=== PATIENT | female | born 1990 | race Caucasian/White ===

== ENCOUNTER 2017-04-17 15:38 | Inpatient (IN) | payer BC ==
[~2017-04-17] VITALS: Ht 165.1 cm; Wt 102.6 kg
[2017-04-17] MEDS ORDERED: SODIUM CHLOR 0.9% 1000 ML INJ 1,000 ML IV SCH (16:16)
[2017-04-17 16:17] VITALS: BP 122/76; PULSE 74; RESP 17; TEMP 98; O2SAT 96
--- NOTE | 2017-04-17 16:21 | PD ---
HPI Chief Complaint: Fall Time Seen by Provider: 16:18 Travel History International Travel<30 days: No Contact w/Intl Traveler<30days: No History of Present Illness HPI 26-year-old female brought in by EMS status post trip and fall with injury to the right ankle. She states she slipped off a step and felt a crack and saw deformity of the right ankle. Patient is brought in with cardboard splint in place. Is given morphine in the right without much improvement in her pain. She is able to wiggle her toes and feel me touching with normal capillary refill in place. Pain is 10 over 10. She has no other injuries currently. Patient last ate at approximately 10 AM this morning. Patient is allergic to muscle relaxers but otherwise has no known drug allergies. [facility] Social History Alcohol Use: Yes Tobacco Use: No Substance Use: No Allergies-Medications (Allergen,Severity, Reaction): Coded Allergies: No Known Allergies (Unverified , 04/17/17) Uncoded Allergies: MUSCLE RELAXER (Allergy, Severe, Cramping, 04/17/17) UNKNOWN Reported Meds & Prescriptions Reported Meds & Active Scripts Active Reported Sonata (Zaleplon) 10 Mg Cap 10 Mg PO HS PRN Dexedrine (Dextroamphetamine Sulfate) 10 Mg Cap 10 Mg PO DAILY Prozac (Fluoxetine HCl) 40 Mg Cap 50 Mg PO DAILY Review of Systems Except as stated in HPI: all other systems reviewed are Neg General / Constitutional: No: Fever Eyes: No: Visual changes HENT: No: Headaches Cardiovascular: No: Chest Pain or Discomfort Respiratory: No: Shortness of Breath Gastrointestinal: No: Abdominal Pain Genitourinary: No: Dysuria Musculoskeletal: Positive: Arthralgias, Limited ROM, Pain Skin: No Rash Neurologic: No: Weakness Psychiatric: No: Depression Endocrine: No: Polydipsia Hematologic/Lymphatic: No: Easy Bruising Physical Exam Narrative GENERAL: Patient is in obvious distress. SKIN: Warm and dry. Normal color. Normal turgor. There is ecchymosis over the right ankle with obvious deformity and swelling. No open wounds are noted. HEAD: Atraumatic. Normocephalic. EYES: Pupils equal and round. No scleral icterus. No injection or drainage. ENT: No nasal bleeding or discharge. Mucous membranes pink and moist. NECK: Trachea midline. No JVD. CARDIOVASCULAR: Regular rate and rhythm. RESPIRATORY: No accessory muscle use. Clear to auscultation. Breath sounds equal bilaterally. GASTROINTESTINAL: Abdomen soft, non-tender, nondistended. Hepatic and splenic margins not palpable. MUSCULOSKELETAL: Extremities without clubbing, cyanosis, or edema. No obvious deformities. NEUROLOGICAL: Awake and alert. No obvious cranial nerve deficits. Motor grossly within normal limits. Five out of 5 muscle strength in the arms and legs. Normal speech. PSYCHIATRIC: Appropriate mood and affect; insight and judgment normal. Data Data Last Documented VS Vital Signs Date Time Temp Pulse Resp B/P (MAP) Pulse Ox O2 Delivery O2 Flow Rate FiO2 04/17/17 16:17 98.0 74 17 122/76 (91) 96 Orders Orders Ice/Cold Pack (04/17/17 16:16) Complete Blood Count With Diff (04/17/17 16:16) Comprehensive Metabolic Panel (04/17/17 16:16) Iv Access Insert/Monitor (04/17/17 16:16) Ecg Monitoring (04/17/17 16:16) Oximetry (04/17/17 16:16) NPO (04/17/17 16:16) Ondansetron Inj (Zofran Inj) (04/17/17 16:30) Sodium Chlor 0.9% 1000 Ml Inj (Ns 1000 M (04/17/17 16:16) Sodium Chloride 0.9% Flush (Ns Flush) (04/17/17 16:30) Hydromorphone Pf Inj (Dilaudid Pf Inj) (04/17/17 16:30) Chest, Single Ap (04/17/17 16:16) Ankle, Limited (Ap&Lat) (04/17/17 16:16) Hydromorphone Pf Inj (Dilaudid Pf Inj) (04/17/17 17:15) Lorazepam Inj (Ativan Inj) (04/17/17 17:15) Urinalysis - C+S If Indicated (04/17/17 17:13) Ed Urine Pregnancytest Poc (04/17/17 17:13) Splinting (04/17/17 ) Urine Culture (04/17/17 18:35) Oxycodone-Acetamin 7.5-325 Mg (Percocet (04/17/17 19:15) Labs Laboratory Tests Test 04/17/17 16:45 04/17/17 18:35 White Blood Count 11.0 TH/MM3 Red Blood Count 4.33 MIL/MM3 Hemoglobin 12.9 GM/DL Hematocrit 38.5 % Mean Corpuscular Volume 88.9 FL Mean Corpuscular Hemoglobin 29.7 PG Mean Corpuscular Hemoglobin Concent 33.4 % Red Cell Distribution Width 13.2 % Platelet Count 252 TH/MM3 Mean Platelet Volume 8.5 FL Neutrophils (%) (Auto) 81.3 % Lymphocytes (%) (Auto) 12.7 % Monocytes (%) (Auto) 5.4 % Eosinophils (%) (Auto) 0.4 % Basophils (%) (Auto) 0.2 % Neutrophils # (Auto) 8.9 TH/MM3 Lymphocytes # (Auto) 1.4 TH/MM3 Monocytes # (Auto) 0.6 TH/MM3 Eosinophils # (Auto) 0.0 TH/MM3 Basophils # (Auto) 0.0 TH/MM3 CBC Comment DIFF FINAL Differential Comment Blood Urea Nitrogen 9 MG/DL Creatinine 0.61 MG/DL Random Glucose 98 MG/DL Total Protein 7.2 GM/DL Albumin 3.7 GM/DL Calcium Level 8.4 MG/DL Alkaline Phosphatase 85 U/L Aspartate Amino Transf (AST/SGOT) 20 U/L Alanine Aminotransferase (ALT/SGPT) 18 U/L Total Bilirubin 0.4 MG/DL Sodium Level 140 MEQ/L Potassium Level 3.8 MEQ/L Chloride Level 110 MEQ/L Carbon Dioxide Level 23.4 MEQ/L Anion Gap 7 MEQ/L Estimat Glomerular Filtration Rate 117 ML/MIN Urine Color YELLOW Urine Turbidity HAZY Urine pH 6.5 Urine Specific [place] 1.022 Urine Protein TRACE mg/dL Urine Glucose (UA) NEG mg/dL Urine Ketones 40 mg/dL Urine Occult Blood NEG Urine Nitrite NEG Urine Bilirubin NEG Urine Urobilinogen LESS THAN 2.0 MG/DL Urine Leukocyte Esterase NEG Urine RBC 1 /hpf Urine WBC 3 /hpf Urine Squamous Epithelial Cells 1 /hpf Urine Bacteria MOD /hpf Urine Mucus FEW /lpf Microscopic Urinalysis Comment CULTURE INDICATED MDM Medical Decision Making Medical Screen Exam Complete: Yes Emergency Medical Condition: Yes Differential Diagnosis Fall. Right ankle sprain. Possible fracture. Narrative Course Patient is distress but medically stable. Labs ordered including CBC, CMP, chest x-ray, and x-ray of the right ankle. Patient is made nothing by mouth, IV access is obtained patient is given 1 mg of hydromorphone IV as well as 4 mg Zofran IV. Patient is given 1000 mL was normal saline bolus. Ice pack is applied to the injured site. Labs are unremarkable. Chest x-ray is normal. Patient is given an additional 1 mg of hydromorphone IV as well as 1 mg of lorazepam IV. X-ray of the right ankle shows oblique fracture of the distal fibula and dislocation of the tibia of the ankle mortise with widening of the medial joint space. There is also a fracture of the posterior lip of the tibia. These findings are per the radiologist. Call was placed for [facility] for [facility] splint which is placed. Call was also placed to the orthopedist stone cutter to discuss the patient. Patient was discussed with Dr. Overton the orthopedist stone cutter, who recommended admitting the patient and making him nothing by mouth after midnight for surgery tomorrow. 18:30 hours call was placed to the hospitalist for admission. 1915 hrs. patient was discussed with Dr. Lowery for admission Diagnosis Primary Impression: Closed right ankle fracture Qualified Codes: S82.891A - Other fracture of right lower leg, initial encounter for closed fracture Admitting Information Admitting Physician Requests: Admit Condition: Stable Rl Fraga Apr 17, 2017 16:21
[2017-04-17] MEDS ORDERED: [UNRECOGNIZED DRUG - CODE] PO (16:24)
[2017-04-17] MEDS ORDERED: SONA10CA5 PO (16:24)
[2017-04-17] MEDS ORDERED: PROZ40CA PO (16:24)
[2017-04-17] MEDS ORDERED: ONDANSETRON HCL 4 MG/2 ML VIAL IVP ONE (16:30)
[2017-04-17] MEDS ORDERED: SODIUM CHLORIDE 0.9% FLUSH 10 ML FLUSH IV FLUSH PRN (16:30)
[2017-04-17] MEDS ORDERED: HYDROmorphone HCL PF 1 MG/ML VIAL IVS ONE (16:30)
[2017-04-17 17:00] LABS: AUTOMATED NEUTROPHIL # 8.9 TH/MM3 (1.8-7.7); BASOPHIL % 0.2 % (0.0-2.0); EOSINOPHIL % 0.4 % (0.0-4.0); HEMATOCRIT 38.5 % (35.0-46.0); HEMO FLAGS DIFF FINAL; LYMPH % 12.7 % (9.0-44.0); LYMPHOCYTE # 1.4 TH/MM3 (1.0-4.8); MEAN CELL VOLUME 88.9 FL (80.0-100.0); MEAN CORPUSCULAR HEMOGLOBIN 29.7 PG (27.0-34.0); MEAN CORPUSCULAR HGB CONC 33.4 % (32.0-36.0); MONO % 5.4 % (0.0-8.0); NEUT % 81.3 % (16.0-70.0); PLATELET COUNT 252 TH/MM3 (150-450); RED BLOOD COUNT 4.33 MIL/MM3 (4.00-5.30); RED CELL DISTRIBUTION WIDTH 13.2 % (11.6-17.2)
[2017-04-17] MEDS ORDERED: HYDROmorphone HCL PF 1 MG/ML VIAL IV PUSH ONE (17:15)
[2017-04-17] MEDS ORDERED: LORazepam 2 MG/ML VIAL IV PUSH ONE (17:15)
--- NOTE | 2017-04-17 17:23 | RADRPT ---
EXAM DATE/TIME: 04/17/2017 16:51 [facility] COMPARISON: No previous studies available for comparison. INDICATIONS : Chest pain after fall. MEDICAL HISTORY : None. SURGICAL HISTORY : None. ENCOUNTER: Initial ACUITY: 1 day PAIN SCORE: 10 LOCATION: Bilateral chest FINDINGS: The lungs are under aerated. There is no pneumothorax. Cardiac silhouette is probably normal for th is degree of inspiration. Negative for fracture. CONCLUSION: Under aerated otherwise negative. Rajat Miller MD FACR on April 17, 2017 at 17:21 Board Certified Radiologist. This report was verified electronically.
--- NOTE | 2017-04-17 17:24 | RADRPT ---
EXAM DATE/TIME: 04/17/2017 16:53 [facility] COMPARISON: No previous studies available for comparison. INDICATIONS : Right ankle pain after fall. MEDICAL HISTORY : None. SURGICAL HISTORY : None. ENCOUNTER: Initial ACUITY: 1 day PAIN SCORE: 10/10 LOCATION: Right lateral ankle. FINDINGS: Fracture dislocation at the ankle. There is an oblique fracture of the distal fibula. There is disl ocation of the tibia at the ankle mortise with widening of the medial joint space. The fracture post erior lip of the tibia. CONCLUSION: Fracture with minimal dislocation as described above. Rajat Miller MD FACR on April 17, 2017 at 17:21 Board Certified Radiologist. This report was verified electronically.
[2017-04-17 17:26] LABS: ALT (GPT) 18 U/L (10-53); ANION GAP 7 MEQ/L (5-15); AST (GOT) 20 U/L (15-37); BICARBONATE 23.4 MEQ/L (21.0-32.0); BLOOD UREA NITROGEN 9 MG/DL (7-18); CHLORIDE 110 MEQ/L (98-107); GLOMERULAR FILTRATION RATE 117 ML/MIN (>89); POTASSIUM 3.8 MEQ/L (3.5-5.1); SODIUM (NA) 140 MEQ/L (136-145)
[2017-04-17 17:29] LABS: ALKALINE PHOSPHATASE 85 U/L (45-117); TOTAL BILIRUBIN ADULT 0.4 MG/DL (0.2-1.0)
[2017-04-17 19:01] LABS: BACTERIA, URINE MOD /hpf; BLOOD, URINE NEG (NEG); COMMENT (UR) CULTURE INDICATED; CULTURE IF INDICATED CULTURE INDICATED; GLUCOSE,URINE NEG (NEG); KETONE, URINE 40 mg/dL (NEG); MUCUS URINE FEW /lpf (OCC); NITRITE,URINE NEG (NEG); PH, URINE 6.5 (5.0-8.5); SQUAMOUS EPITHELIAL CELL URINE 1 /hpf (0-5); URINE COLOR YELLOW (YELLW/STRAW)
[2017-04-17] MEDS ORDERED: oxyCODONE/ACETAMINOPHEN 7.5 MG/325 MG TAB PO ONE (19:15)
[2017-04-17] MEDS ORDERED: NALOXONE HCL 0.4 MG/ML AMP IV PUSH PRN (20:45)
[2017-04-17] MEDS ORDERED: ONDANSETRON HCL 4 MG/2 ML VIAL IVP PRN (20:45)
[2017-04-17] MEDS ORDERED: MAGNESIUM HYDROXIDE SUSP 30 ML CUP PO PRN (20:45)
[2017-04-17] MEDS ORDERED: LACTULOSE SYRUP 20 GM/30 ML CUP PO PRN (20:45)
[2017-04-17 21:48] VITALS: BP 129/73; PULSE 71; RESP 18; TEMP 97.8; O2SAT 97
[2017-04-17] MEDS: SODIUM CHLOR 0.9% 1000 ML INJ 1,000 ML IV SCH (22:42)
[2017-04-17] MEDS ORDERED: HYDROmorphone HCL PF 0.5 MG/0.5 ML SYRINGE IV PUSH PRN (22:45)
[2017-04-17] MEDS ORDERED: diphenhydrAMINE HCL 25 MG CAP PO PRN (22:45)
--- NOTE | 2017-04-17 23:16 | HHI.HP ---
[facility] Primary Care Physician Unknown Admission Diagnosis Unstable right ankle fracture Diagnoses: Chief Complaint: right ankle pain Travel History International Travel<30 Days: No Contact w/Intl Traveler <30 Da: No Traveled to Known Affected Are: No History of Present Illness 26 y/o female with a history of ADHD, and depression presented to the ED after tripping off a step and twisting her ankle. She states she was walking down an uneven step and she fell twisting her ankle. She states the pain is a constant 7/10 throbbing pain to her right ankle, worse with movement but is better with Dilaudid. She denies any chest pain, sob, fever or chills. She states she is having some anxiety because of the surgery and is requesting a Xanax to help her sleep. Past Family Social History Past Medical History ADHD Depression Past Surgical History C section [place] teeth Reported Medications Reported Meds & Active Scripts Active Reported Sonata (Zaleplon) 10 Mg Cap 10 Mg PO HS PRN Dexedrine (Dextroamphetamine Sulfate) 10 Mg Cap 10 Mg PO DAILY Prozac (Fluoxetine HCl) 40 Mg Cap 50 Mg PO DAILY Allergies: Coded Allergies: No Known Allergies (Unverified , 04/17/17) Uncoded Allergies: MUSCLE RELAXER (Allergy, Severe, Cramping, 04/17/17) UNKNOWN Active Ordered Medications Current Medications Medications (Trade) Dose Ordered Sig/Zeny Route Start Time Stop Time Status Last Admin (NS Flush) 2 ml UNSCH PRN IV FLUSH 04/17/17 16:30 Sodium Chloride 1,000 ml @ 100 mls/hr Q10H IV 04/17/17 20:41 04/17/17 22:42 (Tylenol) 650 mg Q4H PRN PO 04/17/17 20:45 (Zofran Inj) 4 mg Q6H PRN IVP 04/17/17 20:45 (Narcan Inj) 0.4 mg UNSCH PRN IV PUSH 04/17/17 20:45 (Milk Of Magnesia Liq) 30 ml Q12H PRN PO 04/17/17 20:45 (Lactulose Liq) 30 ml DAILY PRN PO 04/17/17 20:45 (Dilaudid Pf Inj) 0.2 mg Q4H PRN IV PUSH 04/17/17 22:45 (Benadryl) 25 mg HS PRN PO 04/17/17 22:45 Family History Patient denies any family history Social History Patient denies any tobacco, alcohol or illicit drug use. Physical Exam Vital Signs Vital Signs Date Time Temp Pulse Resp B/P (MAP) Pulse Ox O2 Delivery O2 Flow Rate FiO2 04/17/17 21:48 97.8 71 18 129/73 (91) 97 04/17/17 16:17 98.0 74 17 122/76 (91) 96 Physical Exam GENERAL: This is a well-nourished, well-developed patient, in no apparent distress. SKIN: No rashes, ecchymoses or lesions. Cool and dry. Right ankle splinted. HEAD: Atraumatic. Normocephalic. EYES: Pupils equal round and reactive. ENT: Nose without bleeding, purulent drainage or septal hematoma. Airway patent. NECK: Trachea midline. No JVD. CARDIOVASCULAR: Regular rate and rhythm without murmurs, gallops, or rubs. RESPIRATORY: Clear to auscultation. Breath sounds equal bilaterally. No wheezes , rales, or rhonchi. GASTROINTESTINAL: Abdomen soft, non-tender, nondistended. MUSCULOSKELETAL: Right ankle tenderness, good cap refill, able to wiggle toes. No calf tenderness. NEUROLOGICAL: Awake and alert. Motor and sensory grossly within normal limits. Normal speech. Laboratory Laboratory Tests Test 04/17/17 16:45 04/17/17 18:35 White Blood Count 11.0 Red Blood Count 4.33 Hemoglobin 12.9 Hematocrit 38.5 Mean Corpuscular Volume 88.9 Mean Corpuscular Hemoglobin 29.7 Mean Corpuscular Hemoglobin Concent 33.4 Red Cell Distribution Width 13.2 Platelet Count 252 Mean Platelet Volume 8.5 Neutrophils (%) (Auto) 81.3 Lymphocytes (%) (Auto) 12.7 Monocytes (%) (Auto) 5.4 Eosinophils (%) (Auto) 0.4 Basophils (%) (Auto) 0.2 Neutrophils # (Auto) 8.9 Lymphocytes # (Auto) 1.4 Monocytes # (Auto) 0.6 Eosinophils # (Auto) 0.0 Basophils # (Auto) 0.0 CBC Comment DIFF FINAL Differential Comment Blood Urea Nitrogen 9 Creatinine 0.61 Random Glucose 98 Total Protein 7.2 Albumin 3.7 Calcium Level 8.4 Alkaline Phosphatase 85 Aspartate Amino Transf (AST/SGOT) 20 Alanine Aminotransferase (ALT/SGPT) 18 Total Bilirubin 0.4 Sodium Level 140 Potassium Level 3.8 Chloride Level 110 Carbon Dioxide Level 23.4 Anion Gap 7 Estimat Glomerular Filtration Rate 117 Urine Color YELLOW Urine Turbidity HAZY Urine pH 6.5 Urine Specific [place] 1.022 Urine Protein TRACE Urine Glucose (UA) NEG Urine Ketones 40 Urine Occult Blood NEG Urine Nitrite NEG Urine Bilirubin NEG Urine Urobilinogen LESS THAN 2.0 Urine Leukocyte Esterase NEG Urine RBC 1 Urine WBC 3 Urine Squamous Epithelial Cells 1 Urine Bacteria MOD Urine Mucus FEW Microscopic Urinalysis Comment CULTURE INDICATED Date/Time Source Procedure Growth Status 04/17/17 18:35 Urine Clean Catch Urine Culture Pending Received Result Diagram: 04/17/17 1645 04/17/17 1645 Imaging Last Impressions Chest X-Ray 04/17/171615 Signed Impressions: Service Date/Time: Monday, April 17, 2017 16:51 - CONCLUSION: Under aerated otherwise negative. Rajat Miller MD FACR Ankle X-Ray 04/17/171615 Signed Impressions: Service Date/Time: Monday, April 17, 2017 16:53 - CONCLUSION: Fracture with minimal dislocation as described above. Rajat Miller MD FACR Caprini VTE Risk Assessment Caprini VTE Risk Assessment: No/Low Risk (score <= 1) Caprini Risk Assessment Model Point Value = 1 Point Value = 2 Point Value = 3 Point Value = 5 Age 41-60 Minor surgery BMI > 25 kg/m2 Swollen legs Varicose veins or History of unexplained or recurrent spontaneous Oral contraceptives or hormone replacement Sepsis (< 1 month) Serious lung disease, including pneumonia (< 1 month) Abnormal pulmonary function Acute myocardial infarction Congestive heart failure (< 1 month) History of inflammatory bowel disease Medical patient at bed rest Age 61-74 Arthroscopic surgery Major open surgery (> 45 min) Laparoscopic surgery (> 45 min) Malignancy Confined to bed (> 72 hours) Immobilizing plaster cast Central venous access Age >= 75 History of VTE Family history of VTE Factor V Leiden Prothrombin [id number] Lupus anticoagulant Anticardiolipin antibodies Elevated serum homocysteine Heparin-induced thrombocytopenia Other congenital or acquired thrombophilia Stroke (< 1 month) Elective arthroplasty Hip, pelvis, or leg fracture Acute spinal cord injury (< 1 month) Prophylaxis Regimen Total Risk Factor Score Risk Level Prophylaxis Regimen 0-1 Low Early ambulation 2 Moderate Order ONE of the following: *Sequential Compression Device (SCD) *Heparin 5000 units SQ BID 3-4 Higher Order ONE of the following medications: *Heparin 5000 units SQ TID *Enoxaparin/Lovenox 40 mg SQ daily (WT < 150 kg, CrCl > 30 mL/min) *Enoxaparin/Lovenox 30 mg SQ daily (WT < 150 kg, CrCl > 10-29 mL/min) *Enoxaparin/Lovenox 30 mg SQ BID (WT < 150 kg, CrCl > 30 mL/min) AND/OR *Sequential Compression Device (SCD) 5 or more Highest Order ONE of the following medications: *Heparin 5000 units SQ TID (Preferred with Epidurals) *Enoxaparin/Lovenox 40 mg SQ daily (WT < 150 kg, CrCl > 30 mL/min) *Enoxaparin/Lovenox 30 mg SQ daily (WT < 150 kg, CrCl > 10-29 mL/min) *Enoxaparin/Lovenox 30 mg SQ BID (WT < 150 kg, CrCl > 30 mL/min) AND *Sequential Compression Device (SCD) Assessment and Plan Problem List: (1) Closed right ankle fracture ICD Code: S82.891A - Other fracture of right lower leg, initial encounter for closed fracture Status: Acute (2) Depression ICD Code: F32.9 - Major depressive disorder, single episode, unspecified Status: Chronic Assessment and Plan 26 y/o female with a history of ADHD, and depression presented to the ED after tripping off a step and twisting her ankle. Right ankle closed fracture Ankle xray reviewed and shows Oblique fracture at the distal fibula -Consult orthopedic -Pain management with IV Dilaudid and Percocet PO -NPO after midnight, IVF Depression and ADHD, chronic, stable: Resume home medications DVT prophylaxis: SCDs, hold chemical due to surgery Discussed Condition With Patient and RN Physician Certification 2 Midnight Certification Type: Admission for Inpatient Services Order for Inpatient Services The services are ordered in accordance with Medicare regulations or non- Medicare payer requirements, as applicable. In the case of services not specified as inpatient-only, they are appropriately provided as inpatient services in accordance with the 2-midnight benchmark. Estimated LOS (days): 2 days is the estimated time the patient will need to remain in the hospital, assuming treatment plan goals are met and no additional complications. Post-Hospital Plan: Home Problem Qualifiers (1) Closed right ankle fracture: Qualified Codes: S82.891A - Other fracture of right lower leg, initial encounter for closed fracture (2) Depression: Qualified Codes: F32.9 - Major depressive disorder, single episode, unspecified Meredith Lee Apr 17, 2017 23:16
[2017-04-17] MEDS ORDERED: ALPRAZolam 0.25 MG TAB PO ONE (23:30)
[2017-04-17] MEDS: HYDROmorphone HCL PF 1 MG/ML VIAL IV PRN (23:30)
[2017-04-17] MEDS ORDERED: ZALEPLON 10 MG CAP PO PRN (23:30)
[2017-04-18] VITALS (8 sets, daily range): BP systolic 103–130; BP diastolic 60–66; PULSE 64–89; RESP 16–18; TEMP 96.9–98.6; O2SAT 94–98
[2017-04-18] MEDS: ACETAMINOPHEN 325 MG TAB PO PRN ×2 (02:36→07:57)
[2017-04-18] MEDS: HYDROmorphone HCL PF 1 MG/ML VIAL IV PRN (03:39)
[2017-04-18 06:13] LABS: AUTOMATED NEUTROPHIL # 5.6 TH/MM3 (1.8-7.7); BASOPHIL % 0.3 % (0.0-2.0); EOSINOPHIL # 0.1 TH/MM3 (0-0.4); EOSINOPHIL % 1.5 % (0.0-4.0); HEMATOCRIT 36.3 % (35.0-46.0); HEMO FLAGS DIFF FINAL; LYMPH % 22.8 % (9.0-44.0); LYMPHOCYTE # 1.9 TH/MM3 (1.0-4.8); MEAN CELL VOLUME 90.5 FL (80.0-100.0); MEAN CORPUSCULAR HEMOGLOBIN 29.8 PG (27.0-34.0); MEAN CORPUSCULAR HGB CONC 32.9 % (32.0-36.0); MONO % 9.2 % (0.0-8.0); NEUT % 66.2 % (16.0-70.0); PLATELET COUNT 208 TH/MM3 (150-450); RED BLOOD COUNT 4.01 MIL/MM3 (4.00-5.30); RED CELL DISTRIBUTION WIDTH 13.2 % (11.6-17.2); WHITE BLOOD COUNT 8.4 TH/MM3 (4.0-11.0)
[2017-04-18] MEDS: SODIUM CHLOR 0.9% 1000 ML INJ 1,000 ML IV SCH (06:41)
[2017-04-18 06:43] LABS: BICARBONATE 26.2 MEQ/L (21.0-32.0); POTASSIUM 3.6 MEQ/L (3.5-5.1)
[2017-04-18] MEDS ORDERED: HYDROmorphone HCL PF 2 MG/ML VIAL IV PRN (07:45)
[2017-04-18] MEDS: DEXTROAMPHETAMINE SULFATE 5 MG TAB PO SCH (09:00)
[2017-04-18] MEDS: FLUoxetine HCL 10 MG CAP PO SCH (09:22)
[2017-04-18] MEDS ORDERED: ZOLPIDEM TARTRATE 5 MG TAB PO PRN (10:15)
[2017-04-18] MEDS ORDERED: GENTAMICIN SULFATE 80 MG/2 ML VIAL ONE (10:51)
[2017-04-18] MEDS ORDERED: MORPHINE SULFATE 4 MG/ML INJ IV ONE (12:00)
[2017-04-18] MEDS ORDERED: ONDANSETRON HCL 4 MG/2 ML VIAL IV PUSH ONE (12:00)
[2017-04-18] MEDS ORDERED: PROPOFOL 200 MG/20 ML AMP IV ONE (12:00)
[2017-04-18] MEDS ORDERED: LACTATED RINGER'S 1000 ML INJ 1,000 ML IV ONE (12:00)
[2017-04-18] MEDS ORDERED: ceFAZolin 2 GM PREMIX 50 ML ONE (12:43)
[2017-04-18] MEDS ORDERED: MIDAZOLAM HCL 2 MG/2 ML VIAL ONE (12:48)
[2017-04-18] MEDS ORDERED: DEXAMETHASONE SOD PHOS 4 MG/ML VIAL ONE (12:48)
[2017-04-18] MEDS ORDERED: ACETAMINOPHEN 1000 MG/100 ML 100 ML IV ONE (12:48)
[2017-04-18] MEDS ORDERED: FAMOTIDINE 20 MG/2 ML VIAL ONE (12:48)
--- NOTE | 2017-04-18 13:11 | PD.CONS ---
HPI Service Orthopedic Surgeons Consult Requested By Medical staff Reason for Consult Fracture of the right ankle with subluxation Primary Care Physician Unknown Admission Diagnosis Unstable right ankle fracture Diagnoses: (1) Closed right ankle fracture (2) Depression Chief Complaint: Right ankle pain and instability History of Present Illness This patient is a 18-year-old female. She is living in an apartment complex. She indicated that there was an area the stairs it was unstable. She was walking down and as she exited building and she tripped and fell and sustained an injury to her right ankle. She was unable to bear weight. She was brought to [facility] emergency room and evaluated and treated. She is found to have an unstable right ankle fracture subluxation. She was admitted to the medical service. I have been asked see her in consultation regarding the same. Review of Systems Constitutional: DENIES: Diaphoretic episodes, Fatigue, Fever, Weight gain, Weight loss, Chills, Dizziness, Change in appetite, Night Sweats Endocrine: DENIES: Abnorml menstrual pattern, Heat/cold intolerance, Polydipsia , Polyuria, Polyphagia Eyes: DENIES: Blurred vision, Diplopia, Eye inflammation, Eye pain, Vision loss , Photosensitivity, Double Vision Ears, nose, mouth, throat: DENIES: Tinnitus, Hearing loss, Vertigo, Nasal discharge, Oral lesions, Throat pain, Hoarseness, Ear Pain, Running Nose, Epistaxis, Sinus Pain, Toothache, Odynophagia Respiratory: DENIES: Apneas, Cough, Snoring, Wheezing, Hemoptysis, Sputum production, Shortness of breath Cardiovascular: DENIES: Chest pain, Palpitations, Syncope, Dyspnea on Exertion , PND, Lower Extremity Edema, Orthopnea, Claudication Gastrointestinal: DENIES: Abdominal pain, Black stools, Bloody stools, Constipation, Diarrhea, Nausea, Vomiting, Difficulty Swallowing, Anorexia Genitourinary: DENIES: Abnormal vaginal bleeding, Dysmenorrhea, Dyspareunia, Sexual dysfunction, Urinary frequency, Urinary incontinence, Urgency, Hematuria , Dysuria, Nocturia, Vaginal discharge Musculoskeletal: COMPLAINS OF: Joint pain, Joint Swelling Integumentary: DENIES: Abnormal pigmentation, Pruritus, Rash, Nail changes, Breast masses, Breast skin changes, Nipple discharge Hematologic/lymphatic: DENIES: Bruising, Lymphadenopathy Immunologic/allergic: DENIES: Eczema, Urticaria Neurologic: DENIES: Abnormal gait, Headache, Localized weakness, Paresthesias, Seizures, Speech Problems, Tremor, Poor Balance Psychiatric: COMPLAINS OF: Anxiety Past Family Social History Past Medical History ADHD Depression Past Surgical History C section [place] teeth Allergies: Coded Allergies: No Known Allergies (Unverified , 04/17/17) Uncoded Allergies: MUSCLE RELAXER (Allergy, Severe, Cramping, 04/17/17) UNKNOWN Active Ordered Medications Current Medications Medications (Trade) Dose Ordered Sig/Zeny Route Start Time Stop Time Status Last Admin (NS Flush) 2 ml UNSCH PRN IV FLUSH 04/17/17 16:30 Sodium Chloride 1,000 ml @ 100 mls/hr Q10H IV 04/17/17 20:41 04/18/17 06:41 (Tylenol) 650 mg Q4H PRN PO 04/17/17 20:45 04/18/17 07:57 (Zofran Inj) 4 mg Q6H PRN IVP 04/17/17 20:45 (Narcan Inj) 0.4 mg UNSCH PRN IV PUSH 04/17/17 20:45 (Milk Of Magnesia Liq) 30 ml Q12H PRN PO 04/17/17 20:45 (Lactulose Liq) 30 ml DAILY PRN PO 04/17/17 20:45 (Benadryl) 25 mg HS PRN PO 04/17/17 22:45 (Dextrostat) 10 mg DAILY PO 04/18/17 09:00 (PROzac) 50 mg DAILY PO 04/18/17 09:00 04/18/17 09:22 (Dilaudid Pf Inj) 0.02 mg Q1H PRN IV 04/18/17 07:45 04/18/17 10:53 (Ambien) 5 mg HS PRN PO 04/18/17 10:15 Reported Meds & Active Scripts Active Reported Sonata (Zaleplon) 10 Mg Cap 10 Mg PO HS PRN Dexedrine (Dextroamphetamine Sulfate) 10 Mg Cap 10 Mg PO DAILY Prozac (Fluoxetine HCl) 40 Mg Cap 50 Mg PO DAILY Family History Patient denies any family history Social History Patient denies any tobacco, alcohol or illicit drug use. Physical Exam Vital Signs Vital Signs Date Time Temp Pulse Resp B/P (MAP) Pulse Ox O2 Delivery O2 Flow Rate FiO2 04/18/17 11:02 98.0 66 16 110/61 (77) 96 04/18/17 09:21 20 04/18/17 08:02 98.0 89 18 103/66 (78) 98 04/18/17 04:09 16 04/18/17 04:00 97.8 65 18 116/65 (82) 96 04/18/17 00:11 97.2 64 18 118/64 (82) 95 04/17/17 21:48 97.8 71 18 129/73 (91) 97 04/17/17 16:17 98.0 74 17 122/76 (91) 96 Physical Exam The right ankle is in a splint. She has no other localizing areas of discomfort. Sensation distally is normal. She was referred toes. Mild swelling is seen. She has moderate to advanced pain. There is no tenderness about the knee or hip. Both have relatively normal motion. HEENT: Normocephalic atraumatic pupils equal round reactive. NECK: Supple. No abnormal masses. Full range of motion. CHEST: Clear to auscultation with no rales or rhonchi's or wheezes. HEART: Regular rate and rhythm. No murmurs. ABDOMEN: Soft, nontender, no masses. Normal active bowel sounds. GENITOURINARY: Deferred Laboratory Laboratory Tests Test 04/17/17 16:45 04/17/17 18:35 04/18/17 04:36 White Blood Count 11.0 8.4 Red Blood Count 4.33 4.01 Hemoglobin 12.9 12.0 Hematocrit 38.5 36.3 Mean Corpuscular Volume 88.9 90.5 Mean Corpuscular Hemoglobin 29.7 29.8 Mean Corpuscular Hemoglobin Concent 33.4 32.9 Red Cell Distribution Width 13.2 13.2 Platelet Count 252 208 Mean Platelet Volume 8.5 9.4 Neutrophils (%) (Auto) 81.3 66.2 Lymphocytes (%) (Auto) 12.7 22.8 Monocytes (%) (Auto) 5.4 9.2 Eosinophils (%) (Auto) 0.4 1.5 Basophils (%) (Auto) 0.2 0.3 Neutrophils # (Auto) 8.9 5.6 Lymphocytes # (Auto) 1.4 1.9 Monocytes # (Auto) 0.6 0.8 Eosinophils # (Auto) 0.0 0.1 Basophils # (Auto) 0.0 0.0 CBC Comment DIFF FINAL DIFF FINAL Differential Comment Blood Urea Nitrogen 9 10 Creatinine 0.61 0.58 Random Glucose 98 93 Total Protein 7.2 Albumin 3.7 Calcium Level 8.4 8.0 Alkaline Phosphatase 85 Aspartate Amino Transf (AST/SGOT) 20 Alanine Aminotransferase (ALT/SGPT) 18 Total Bilirubin 0.4 Sodium Level 140 141 Potassium Level 3.8 3.6 Chloride Level 110 109 Carbon Dioxide Level 23.4 26.2 Anion Gap 7 6 Estimat Glomerular Filtration Rate 117 124 Urine Color YELLOW Urine Turbidity HAZY Urine pH 6.5 Urine Specific [place] 1.022 Urine Protein TRACE Urine Glucose (UA) NEG Urine Ketones 40 Urine Occult Blood NEG Urine Nitrite NEG Urine Bilirubin NEG Urine Urobilinogen LESS THAN 2.0 Urine Leukocyte Esterase NEG Urine RBC 1 Urine WBC 3 Urine Squamous Epithelial Cells 1 Urine Bacteria MOD Urine Mucus FEW Microscopic Urinalysis Comment CULTURE INDICATED Date/Time Source Procedure Growth Status 04/17/17 18:35 Urine Clean Catch Urine Culture Pending Received Result Diagram: 04/18/17 0436 04/18/17 0436 Imaging X-rays were reviewed and the radiologist's interpretation were reviewed showing evidence of a unstable fracture subluxation with a Mena C fracture of the lateral malleolus and likely disruption of the syndesmosis. There is no bony fracture of the medial malleolus Assessment & Plan Assessment and Plan By malleolar equivalent fracture subluxation of the right ankle. Syndesmotic ligament rupture. Unstable right ankle injury. PLAN: Surgery: Open treatment internal fixation right ankle fracture with lateral plates and screws and likely syndesmotic screws. Consent: There are risks with surgery including infection bleeding loss of motion continued pain and need for further surgery neurologic or vascular injury. The patient understands these issues and wishes to proceed forward with surgery as outlined above. Surgery will be performed today when time is available for surgical treatment. We anticipate approximately 7-8 weeks of [id number] for the affected right leg. Kermit Alston MD Apr 18, 2017 13:11
--- NOTE | 2017-04-18 14:20 | PD.OP ---
cc: Kermit Alston MD Operative Report Date of Surgery: Apr 18, 2017 Preoperative Diagnosis: Bimalleolar equivalent fracture subluxation, right ankle. Postoperative Diagnosis: Trimalleolar equivalent fracture subluxation, right ankle Procedure: Open treatment internal fixation right ankle fracture. Repair of syndesmotic ligament, right ankle Anesthesia: Gen. Surgeon: Kermit Alston Firer Bisque Kiln(s): SARITA Lazaro Operation and Findings: EBL: 50 cc INDICATION: Patient is a 26-year-old female who fell down stairs at the place that she lives. She had an unstable right ankle injury was seen last night. She was admitted through the emergency room. I have been asked to see her in consultation. She is felt be a candidate for open treatment NOTE: Mar Lazaro PA-C was present for the entire surgical procedure as my greenhouse assistant. In my medical opinion her skill and care was necessary for the proper management of this patient. PROCEDURE: The patient brought to the operating room and anesthetized in the supine position. The [] leg was visualized under fluoroscopy. Antibiotics were given within an one hour time window and a timeout was done. The lateral side was approached. After exsanguination the tourniquet was inflated to 250 mmHg. A longitudinal incision was made. The fracture was exposed. Multiple clamps used to hold this in proper position. A proper length ITS plate was positioned and held. Multiple screws were placed as well as a lag screw. Overall alignment was satisfactory. There was evidence of instability of syndesmotic ligament. We were able to hold the ankle in a dorsiflexed position and holding the mortise reduced. At an angle and through the last hole in the plate, a cortical screw was placed through the fibula and then through the lateral cortex of the tibia without compression. Ankle was reduced anatomically. The wound was closed in layers with 2-0 Vicryl 3-0 Vicryl and 3-0 nylon mattress sutures. Intraoperative imaging showed anatomic reduction. Alignment was satisfactory. A posterior splint was fitted and applied. The patient was awakened and taken to recovery room satisfactory condition. The sponge count and needle count and sponge counts were all correct FINDINGS: There was evidence of a try malleolar fragment posteriorly seen on the lateral view. This was a small fragment and did not appear to need additional fixation. The final stability of the ankle was excellent. The alignment was anatomic. No complication was noted Kermit Alston MD Apr 18, 2017 14:20
[2017-04-18] MEDS ORDERED: MAGNESIUM HYDROXIDE SUSP 30 ML CUP PO PRN (14:30)
[2017-04-18] MEDS ORDERED: ACETAMINOPHEN/HYDROcodone 325 MG/7.5 MG TAB PO PRN (14:30)
[2017-04-18] MEDS ORDERED: diphenhydrAMINE HCL 25 MG CAP PO PRN (14:30)
[2017-04-18] MEDS ORDERED: NALOXONE HCL 0.4 MG/ML AMP IV PRN (14:30)
[2017-04-18] MEDS ORDERED: ONDANSETRON HCL 4 MG/2 ML VIAL IVP PRN (14:30)
[2017-04-18] MEDS ORDERED: SODIUM CHLORIDE 0.9% FLUSH 5 ML FLUSH IVF PRN (14:30)
[2017-04-18] MEDS ORDERED: Post-op Orders (for Pharmacy) MISC XX ONE (14:30)
[2017-04-18] MEDS ORDERED: *MEPERIDINE 25 MG INJ VIAL PERIprocedural Use ONLY ONE (14:50)
[2017-04-18] MEDS ORDERED: *morphine SULFATE 8 MG/ML PERIprocedure ONLY ONE ×2 (15:03→15:13)
[2017-04-18] MEDS ORDERED: DO NOT ADM ANY ANTICOAGULANT DRUGS PRN (15:15)
[2017-04-18] MEDS ORDERED: *HYDROmorphone PF 1 MG VIAL PERIprocedural Use ONLY ONE (15:19)
[2017-04-18] MEDS: LACTATED RINGER'S 1000 ML INJ 1,000 ML IV SCH ×2 (15:53→21:04)
--- NOTE | 2017-04-18 15:57 | RADRPT ---
EXAM DATE/TIME: 04/18/2017 14:00 [place] COMPARISON: No previous studies available for comparison. INDICATIONS : ORIF right ankle. MEDICAL HISTORY : None. SURGICAL HISTORY : None. ENCOUNTER: Subsequent ACUITY: 1 day PAIN SCORE: Non-responsive. LOCATION: Right ankle. FINDINGS/CONCLUSION: Four-view right ankle demonstrates the patient has a lateral fixation plate across the fibula with a syndesmotic screw. There is excellent alignment. There is no complication with the hardware. The a nkle mortise is grossly intact. Rachid Flynn MD on April 18, 2017 at 14:44 Board Certified Radiologist. This report was verified electronically.
[2017-04-18] MEDS: CALCIUM/VITAMIN D 250 MG/125 U TAB PO SCH (17:27)
[2017-04-18] MEDS: ACETAMINOPHEN/HYDROcodone 325 MG/7.5 MG TAB PO PRN ×2 (17:27→23:14)
--- NOTE | 2017-04-18 19:13 | HHI.PR ---
Subjective Remarks Patient reports not having good tolerance for Sonata at home, requesting alternative medication to help her sleep at night., Denies any nausea vomiting or any significant coughing issues postop Objective Vital Signs Date Time Temp Pulse Resp B/P (MAP) Pulse Ox O2 Delivery O2 Flow Rate FiO2 04/18/17 18:30 16 04/18/17 17:21 94 21 04/18/17 16:50 97.4 76 18 130/61 (84) 94 04/18/17 16:00 98.2 77 15 123/60 (81) 99 Nasal Cannula 3 04/18/17 15:45 72 16 114/72 (86) 97 Nasal Cannula 3 04/18/17 15:30 70 17 109/64 (79) 97 Nasal Cannula 3 04/18/17 15:15 72 15 120/73 (89) 97 Nasal Cannula 3 04/18/17 15:00 73 15 131/79 (96) 97 Nasal Cannula 3 04/18/17 14:43 97.2 89 15 144/82 (102) 95 Nasal Cannula 3 04/18/17 11:02 98.0 66 16 110/61 (77) 96 04/18/17 09:21 20 04/18/17 08:02 98.0 89 18 103/66 (78) 98 04/18/17 04:09 16 04/18/17 04:00 97.8 65 18 116/65 (82) 96 04/18/17 00:11 97.2 64 18 118/64 (82) 95 04/17/17 21:48 97.8 71 18 129/73 (91) 97 I/O 04/17/17 04/17/17 04/17/17 04/18/17 04/18/17 04/18/17 07:00 15:00 23:00 07:00 15:00 23:00 Intake Total 1720 ml 700 ml Output Total 5 ml Balance 1720 ml 695 ml Intake Oral 720 ml IV Total 1000 ml Other 700 ml Output Estimated Blood Loss 5 ml # Voids 1 Result Diagram: 04/18/17 0436 04/18/17435 Objective Remarks No acute distress, ambulating with walker well. Right leg in postop dressing, good motion of proximal BL LEs A/P Assessment and Plan 26 y/o female with a history of ADHD, and depression presented to the ED after tripping off a step and twisting her ankle. Right ankle closed fracture Ankle xray reviewed and shows Oblique fracture at the distal fibula -post ortho procedure -Pain management Depression and ADHD, chronic, stable: home medications insomnia 2/2 pain meds - can try xanax prn if ambien doesn't work DVT prophylaxis: SCDs, hold chemical due to surgery Jay Lewis MD Apr 18, 2017 19:13
[2017-04-18] MEDS ORDERED: ALPRAZolam 0.25 MG TAB PO PRN (19:15)
[2017-04-18] MEDS: MORPHINE SULFATE 8 MG/ML INJ IV PUSH PRN (19:47)
[2017-04-18] MEDS: DOCUSATE SODIUM 50 MG/SENNA 8.6 MG TAB PO SCH (19:47)
[2017-04-18] MEDS: SODIUM CHLORIDE 0.9% FLUSH 5 ML FLUSH IVF SCH (19:48)
[2017-04-19 00:06] VITALS: BP 119/60; PULSE 68; RESP 18; TEMP 98.6; O2SAT 95
[2017-04-19] MEDS: MORPHINE SULFATE 8 MG/ML INJ IV PUSH PRN ×3 (00:45→09:05)
[2017-04-19 04:28] VITALS: BP 109/64; PULSE 65; RESP 18; TEMP 97; O2SAT 96
[2017-04-19] MEDS: ACETAMINOPHEN/HYDROcodone 325 MG/7.5 MG TAB PO PRN ×2 (05:50→11:49)
[2017-04-19 08:00] VITALS: BP 127/70; PULSE 73; RESP 18; TEMP 98.2; O2SAT 95
[2017-04-19] MEDS: DEXTROAMPHETAMINE SULFATE 5 MG TAB PO SCH (09:00)
[2017-04-19] MEDS ORDERED: MULTIVITAMINS/MINERALS THERAPEUTIC TAB PO SCH (09:00)
[2017-04-19] MEDS: DOCUSATE SODIUM 50 MG/SENNA 8.6 MG TAB PO SCH (09:04)
[2017-04-19] MEDS: CALCIUM/VITAMIN D 250 MG/125 U TAB PO SCH ×2 (09:04→11:48)
[2017-04-19] MEDS: FLUoxetine HCL 10 MG CAP PO SCH (09:04)
[2017-04-19] MEDS: LACTATED RINGER'S 1000 ML INJ 1,000 ML IV SCH (09:05)
[2017-04-19] MEDS: SODIUM CHLORIDE 0.9% FLUSH 5 ML FLUSH IVF SCH (09:05)
[2017-04-19 09:45] VITALS: O2SAT 98
--- NOTE | 2017-04-19 10:26 | PD.ORT.PN ---
Subjective Post Op Day #: 1 Subjective Remarks pain under control. Objective Vitals Vital Signs Date Time Temp Pulse Resp B/P (MAP) Pulse Ox O2 Delivery O2 Flow Rate FiO2 04/19/17 08:00 98.2 73 18 127/70 (89) 95 04/19/17 04:28 97.0 65 18 109/64 (79) 96 04/19/17 00:06 98.6 68 18 119/60 (79) 95 04/18/17 20:12 96.9 75 18 121/66 (84) 96 04/18/17 18:30 16 04/18/17 17:21 94 21 04/18/17 16:50 97.4 76 18 130/61 (84) 94 04/18/17 16:00 98.2 77 15 123/60 (81) 99 Nasal Cannula 3 04/18/17 15:45 72 16 114/72 (86) 97 Nasal Cannula 3 04/18/17 15:30 70 17 109/64 (79) 97 Nasal Cannula 3 04/18/17 15:15 72 15 120/73 (89) 97 Nasal Cannula 3 04/18/17 15:00 73 15 131/79 (96) 97 Nasal Cannula 3 04/18/17 14:43 97.2 89 15 144/82 (102) 95 Nasal Cannula 3 04/18/17 11:02 98.0 66 16 110/61 (77) 96 I/O 04/18/17 04/18/17 04/18/17 04/19/17 04/19/17 04/19/17 07:00 15:00 23:00 07:00 15:00 23:00 Intake Total 1060 ml 240 ml Output Total 5 ml Balance 1055 ml 240 ml Intake Oral 360 ml 240 ml Other 700 ml Output Estimated Blood Loss 5 ml # Voids 2 4 # Bowel Movements 0 0 Result Diagram: 04/18/176 04/18/17435 Objective Remarks in bed, nad dressing and splint c/d/i sensation intact nvi cap refill present Assessment & Plan Ortho Post Op Day #: 1 Problem List: Assessment and Plan Bi malleolar equivalent fracture subluxation of the right ankle. Syndesmotic ligament rupture. Unstable right ankle injury. PLAN: NWB RLE maintain splint ortho stable and cleared for d/c lives in [place], provide copy of op report and xrays f/up dr. anabella blackmon 2 weeks if remains in town. Ru Meier Apr 19, 2017 10:25
[2017-04-19] MEDS ORDERED: WALKER WHEELS/F1 MIS (10:29)
[2017-04-19] MEDS ORDERED: COMMODE 3-IN-11 MIS (10:29)
[2017-04-19 12:00] VITALS: BP 125/74; PULSE 60; RESP 18; TEMP 97.4; O2SAT 97
--- NOTE | 2017-04-19 13:06 | HHI.DCPOC ---
Discharge Care Plan Diagnosis: (1) Closed right ankle fracture Goals to Promote Your Health * To prevent worsening of your condition and complications * To maintain your health at the optimal level Directions to Meet Your Goals Take your medications as prescribed Follow your dietary instruction Follow activity as directed Keep your appointments as scheduled Take your immunizations and boosters as scheduled If your symptoms worsen call your PCP, if no PCP go to Urgent Care Center or Emergency Room Smoking is Dangerous to Your Health. Avoid second hand smoke Call the 24-hour hour crisis hotline for domestic abuse at Jay Lewis MD Apr 19, 2017 13:06
[2017-04-19] MEDS ORDERED: HYDR-3366 PO (13:10)
[2017-04-19] MEDS ORDERED: ENOX30IN SQ (13:15)
[2017-04-19] MEDS ORDERED: ENOXAPARIN SODIUM 30 MG/0.3 ML SYRINGE SQ ONE (14:30)
--- NOTE | 2017-04-19 14:32 | HHI.DS ---
Discharge Summary Admission Date Apr 17, 2017 at 19:44 Discharge Date: Apr 19, 2017 Admitting Diagnosis Unstable right ankle fracture (1) Closed right ankle fracture ICD Code: S82.891A - Other fracture of right lower leg, initial encounter for closed fracture Status: Acute (2) Depression ICD Code: F32.9 - Major depressive disorder, single episode, unspecified Status: Chronic Procedures Open treatment internal fixation right ankle fracture. Repair of syndesmotic ligament, right ankle Brief History - From Admission 26 y/o female with a history of ADHD, and depression presented to the ED after tripping off a step and twisting her ankle. She states she was walking down an uneven step and she fell twisting her ankle. She states the pain is a constant 7/10 throbbing pain to her right ankle, worse with movement but is better with Dilaudid. She denies any chest pain, sob, fever or chills. She states she is having some anxiety because of the surgery and is requesting a Xanax to help her sleep. CBC/BMP: 04/18/17 0436 04/18/17 0436 Significant Findings Laboratory Tests Test 04/17/17 16:45 04/17/17 18:35 04/18/17 04:36 Neutrophils (%) (Auto) 81.3 % (16.0-70.0) Neutrophils # (Auto) 8.9 TH/MM3 (1.8-7.7) Calcium Level 8.4 MG/DL (8.5-10.1) 8.0 MG/DL (8.5-10.1) Chloride Level 110 MEQ/L (98-107) 109 MEQ/L (98-107) Urine Turbidity HAZY (CLEAR) Urine Ketones 40 mg/dL (NEG) Urine Bacteria MOD /hpf (NONE) Urine Mucus FEW /lpf (OCC) Monocytes (%) (Auto) 9.2 % (0.0-8.0) Imaging Last Impressions Ankle X-Ray 04/18/17 0000 Signed Impressions: Service Date/Time: , April 18, 2017 14:00 - CONCLUSION: Four- view right ankle demonstrates the patient has a lateral fixation plate across the fibula with a syndesmotic screw. There is excellent alignment. There is no complication with the hardware. The ankle mortise is grossly intact. Rachid Flynn MD Chest X-Ray 04/17/17 1616 Signed Impressions: Service Date/Time: Monday, April 17, 2017 16:51 - CONCLUSION: Under aerated otherwise negative. Rajat Miller MD FACR PE at Discharge No acute distress Unlabored breathing Intact movement of the proximal bilateral lower extremities, right lower leg in postop splint Hospital Course Patient was admitted, underwent open treatment internal fixation of right ankle fracture and repair syndesmotic ligament of right ankle. Tolerated procedure well, was transitioned to oral pain medications and tolerated her diet well. Patient has met maximum benefit from hospitalization and is clinically stable for discharge. Pt Condition on Discharge: Stable Discharge Disposition: Discharge Home Discharge Time: > 30 minutes Discharge Instructions DIET: Follow Instructions for: As Tolerated, No Restrictions Activities you can perform: Non Weight Bearing Follow up Referrals: Orthopedics - 2 Weeks with Kermit Alston MD PCP Follow-up - 10 Days New Medications: Commode 3-in-1 (Commode 3-in-1) 1 Mis Mis EA .ROUTE DIRECTED, #1 0 Refills Enoxaparin Inj (Enoxaparin Inj) 30 Mg/0.3ML Syr 30 MG SQ DAILY for Blood Clot Prevention, #6 SYRINGE 0 Refills Hydrocodone-Acetaminophen ([place]) 10-325 Mg Tab 1 TAB PO Q4H PRN for PAIN, #30 TAB 0 Refills Walker with Front Wheels (Walker with Front Wheels) 1 Mis Mis EA .ROUTE DIRECTED, #1 0 Refills Continued Medications: Dextroamphetamine (Dexedrine) 10 Mg Cap 10 MG PO DAILY, #30 CAP 0 Refills Fluoxetine (Prozac) 40 Mg Cap 50 MG PO DAILY, #30 CAP 0 Refills Discontinued Medications: Zaleplon (Sonata) 10 Mg Cap 10 MG PO HS PRN for INSOMNIA, CAP 0 Refills Jay Lewis MD Apr 19, 2017 14:32
== END 2017-04-19 16:37 | disposition home or self-care (01) | DRG 494 ==
LOC: NEDAMB 15:38 → NEDA 19:44 → NEPFCDU 21:38 → N06B 04-18 12:17
PROVIDERS: ADMIT Hospitalist; ATTEND Hospitalist
PROC: 0QSJ04Z Reposition Right Fibula with Internal Fixation Device, Open Approach (ICD-10-PCS; principal; 2017-04-17)
DX: S82.851A Displaced trimalleolar fracture of right lower leg, initial encounter for closed fracture (principal); F41.8 Other specified anxiety disorders; W10.8XXA Fall (on) (from) other stairs and steps, initial encounter; Y92.009 Unspecified place in unspecified non-institutional (private) residence as the place of occurrence of the external cause; F90.9 Attention-deficit hyperactivity disorder, unspecified type; G47.01 Insomnia due to medical condition
CPT/HCPCS: 71010; 73600; 76000; 80048; 80053; 81001; 84703; 85025; 87086; 94150; 96361; 96374; 96375; 96376; C1713; J0131; J0690; J1100; J1170; J1580; J1650; J2060; J2175; J2250; J2270; J2405; J3010; J7030; J7120